=== PATIENT | male | born 1995 | race Caucasian/White ===

== ENCOUNTER 2019-04-30 07:53 | Emergency (ER) | payer OTHER ==
[~2019-04-30] VITALS: Ht 182.9 cm; Wt 102.3 kg
[2019-04-30 08:09] VITALS: BP 123/80; TEMP 98
[2019-04-30 09:07] VITALS: PULSE 79
== END 2019-04-30 09:17 | disposition home or self-care (01) ==
LOC: COL.ER 07:53
DX: S61.011A Laceration without foreign body of right thumb without damage to nail, initial encounter (principal); Z23 Encounter for immunization; W26.8XXA Contact with other sharp object(s), not elsewhere classified, initial encounter; Y92.59 Other trade areas as the place of occurrence of the external cause